=== PATIENT | male | born 1930 ===

== ENCOUNTER → 2018-02-23 07:30 | Outpatient (CLI) | payer OTHER | END | disposition home or self-care (01) | LOC: LAB 07:30 | DX: E11.9 Type 2 diabetes mellitus without complications (principal); E78.2 Mixed hyperlipidemia; E78.3 Hyperchylomicronemia; D66 Hereditary factor VIII deficiency; D65 Disseminated intravascular coagulation [defibrination syndrome]; N39.0 Urinary tract infection, site not specified; Z01.810 Encounter for preprocedural cardiovascular examination; I10 Essential (primary) hypertension ==

== ENCOUNTER 2018-03-06 08:33 | Day surgery (SDC) | payer OTHER ==
[~2018-03-06 08:33] MED LIST: ACTOS15 MG PO; LIPITOR40 MG PO; MYRBETRIQ50 MG PO; PRANDIN PO; TAMS0.4C PO
== END 2018-03-06 17:30 | disposition home or self-care (01) ==
LOC: CIR.AMB 08:33
DX: M24.832 Other specific joint derangements of left wrist, not elsewhere classified (principal)